=== PATIENT | male | born 1985 | race Caucasian/White ===

== ENCOUNTER 2017-01-14 02:28 | Emergency (ER) | payer SELFPAY ==
[~2017-01-14] VITALS: Ht 167.6 cm; Wt 95.2 kg
[2017-01-14 04:15] LABS: BASOPHIL % 0.6 % (0-2); PLATELET COUNT 347 x10^3mcL (130-400); RED CELL DISTRIBUTION WIDTH 13.5 % (11.5-14.5)
[2017-01-14 04:23] LABS: CALCIUM 8.5 mg/dL (8.5-10.1); CARBON DIOXIDE 22.9 mmol/L (21-32); CHLORIDE SERUM 106 mmol/L (98-107); CREATININE SERUM 0.8 mg/dL (0.7-1.3); GFR1 > 60 mL/min; GLUCOSE SERUM 95 mg/dL (74-106); POTASSIUM SERUM 3.7 mmol/L (3.5-5.1); SODIUM SERUM 141 mmol/L (136-145)
[2017-01-14 04:36] LABS: ALKALINE PHOSPHATASE 87 U/L (46-116); ALT/SGPT 29 U/L (16-63); AST/SGOT 15 U/L (15-37); BILIRUBIN TOTAL 0.33 mg/dL (0.20-1.00); FREE T4 1.07 ng/dL (0.76-1.46); TOTAL PROTEIN, SERUM 7.6 g/dL (6.4-8.2)
[2017-01-14 04:41] LABS: UA SPECIFIC GRAVITY >=1.030 (1.005-1.035); microscopic required? YES; urine erythrocyte TRACE (NEGATIVE)
[2017-01-14 05:11] LABS: AMPHETAMINE QUAL UR NONE DETECTED (NEG <=1000)
[2017-01-14 06:13] VITALS: BP 121/76
== END 2017-01-14 06:13 | disposition left against medical advice (07) ==
LOC: ED 02:28
PROVIDERS: Emergency Medicine
DX: R07.89 Other chest pain (principal)
CPT/HCPCS: 36415; 84439; 85378; Q0092

== ENCOUNTER 2017-03-23 21:38 | Emergency (ER) | payer SELFPAY ==
[~2017-03-23] VITALS: Ht 167.6 cm; Wt 87.1 kg
[2017-03-23 21:41] VITALS: BP 106/78; Ht 167.6 cm; Wt 87.1 kg
== END 2017-03-23 23:33 | disposition left against medical advice (07) ==
LOC: ED 21:38
DX: Z53.21 Procedure and treatment not carried out due to patient leaving prior to being seen by health care provider (principal)

== ENCOUNTER 2017-03-30 18:09 | Emergency (ER) | payer SELFPAY ==
[~2017-03-30] VITALS: Ht 165.1 cm; Wt 94.3 kg
[2017-03-30 18:16] VITALS: BP 156/82; Ht 165.1 cm; Wt 94.3 kg
== END 2017-03-30 19:37 | disposition left against medical advice (07) ==
LOC: ED 18:09
DX: Z53.21 Procedure and treatment not carried out due to patient leaving prior to being seen by health care provider (principal)

== ENCOUNTER 2017-04-18 09:18 | Emergency (ER) | payer MEDICAID ==
[~2017-04-18] VITALS: Ht 167.6 cm; Wt 91.6 kg
[2017-04-18 09:43] VITALS: Ht 167.6 cm; Wt 91.6 kg
[2017-04-18 11:14] LABS: BASOPHIL % 0.4 % (0-2); PLATELET COUNT 353 x10^3mcL (130-400)
[2017-04-18 11:32] LABS: CALCIUM 8.9 mg/dL (8.5-10.1); CARBON DIOXIDE 24.8 mmol/L (21-32); CHLORIDE SERUM 105 mmol/L (98-107); CREATININE SERUM 0.9 mg/dL (0.7-1.3); GFR1 > 60 mL/min; GLUCOSE SERUM 74 mg/dL (74-106); POTASSIUM SERUM 3.3 mmol/L (3.5-5.1); SODIUM SERUM 140 mmol/L (136-145)
[2017-04-18 11:35] LABS: ALKALINE PHOSPHATASE 86 U/L (46-116); ALT/SGPT 36 U/L (16-63); AMYLASE 36 U/L (25-115); AST/SGOT 16 U/L (15-37); BILIRUBIN TOTAL 0.8 mg/dL (0.20-1.00); CHOLESTEROL 153 mg/dL (<200); HDL CHOLESTEROL 36 mg/dL (40-60); LIPASE 122 IU/L (73-393); MAGNESIUM 2.1 mg/dL (1.8-2.4); TOTAL PROTEIN, SERUM 7.4 g/dL (6.4-8.2)
[2017-04-18 12:14] LABS: microscopic required? NO
[2017-04-18 12:19] LABS: UA SPECIFIC GRAVITY 1.025 (1.005-1.035); urine erythrocyte NEGATIVE (NEGATIVE)
[2017-04-18 12:34] LABS: AMPHETAMINE QUAL UR POSITIVE (NEG <=1000)
[2017-04-18 14:15] VITALS: BP 137/80
== END 2017-04-18 14:14 | disposition home or self-care (01) ==
LOC: ED 09:18
PROVIDERS: Emergency Medicine
DX: F10.20 Alcohol dependence, uncomplicated (principal); R10.9 Unspecified abdominal pain; R07.9 Chest pain, unspecified
CPT/HCPCS: 83880; 85378; 99406; G0480; J3411; J3475; J3490; J7030

== ENCOUNTER 2017-05-07 21:59 | Emergency (ER) | payer MEDICAID ==
[~2017-05-07] VITALS: Ht 167.6 cm; Wt 92.5 kg
[2017-05-07 22:03] VITALS: Ht 167.6 cm; Wt 92.5 kg
[2017-05-08 00:12] LABS: BASOPHIL % 0.1 % (0-2); PLATELET COUNT 278 x10^3mcL (130-400); RED CELL DISTRIBUTION WIDTH 13.2 % (11.5-14.5)
[2017-05-08 00:58] LABS: ALKALINE PHOSPHATASE 80 U/L (46-116); ALT/SGPT 28 U/L (16-63); AMYLASE 42 U/L (25-115); AST/SGOT 11 U/L (15-37); BILIRUBIN TOTAL 1.3 mg/dL (0.20-1.00); CALCIUM 8.7 mg/dL (8.5-10.1); CARBON DIOXIDE 27.2 mmol/L (21-32); CHLORIDE SERUM 100 mmol/L (98-107); GFR1 > 60 mL/min; GLUCOSE SERUM 106 mg/dL (74-106); LIPASE 198 IU/L (73-393); SODIUM SERUM 138 mmol/L (136-145); TOTAL PROTEIN, SERUM 7.4 g/dL (6.4-8.2)
[2017-05-08 01:22] LABS: POTASSIUM SERUM 2.9 mmol/L (3.5-5.1)
[2017-05-08 01:58] VITALS: BP 132/71
== END 2017-05-08 01:57 | disposition home or self-care (01) ==
LOC: ED 21:59
PROVIDERS: Emergency Medicine
DX: R10.13 Epigastric pain (principal); R10.12 Left upper quadrant pain; R10.32 Left lower quadrant pain; E87.6 Hypokalemia; E86.0 Dehydration; J44.9 Chronic obstructive pulmonary disease, unspecified
CPT/HCPCS: 83880; J2405; J3010; J7030

== ENCOUNTER 2017-08-19 03:34 | Emergency (ER) | payer MEDICAID ==
[~2017-08-19] VITALS: Ht 167.6 cm; Wt 85.3 kg
[2017-08-19 03:48] VITALS: Ht 167.6 cm; Wt 85.3 kg
[2017-08-19 05:02] VITALS: BP 128/86
== END 2017-08-19 05:02 | disposition home or self-care (01) ==
LOC: ED 03:34
DX: S61.412A Laceration without foreign body of left hand, initial encounter (principal); F59 Unspecified behavioral syndromes associated with physiological disturbances and physical factors; W27.8XXA Contact with other nonpowered hand tool, initial encounter; Y92.9 Unspecified place or not applicable

== ENCOUNTER 2017-10-04 07:58 | Emergency (ER) | payer MEDICAID ==
[~2017-10-04] VITALS: Ht 170.2 cm; Wt 87.5 kg
[2017-10-04 08:39] LABS: BASOPHIL % 0.9 % (0-2); PLATELET COUNT 320 x10^3mcL (130-400); RED CELL DISTRIBUTION WIDTH 12.9 % (11.5-14.5)
[2017-10-04 08:48] LABS: CALCIUM 8.9 mg/dL (8.5-10.1); CARBON DIOXIDE 23.3 mmol/L (21-32); CHLORIDE SERUM 106 mmol/L (98-107); CREATININE SERUM 1.1 mg/dL (0.7-1.3); GFR1 > 60 mL/min; GLUCOSE SERUM 108 mg/dL (74-106); POTASSIUM SERUM 3.1 mmol/L (3.5-5.1); SODIUM SERUM 138 mmol/L (136-145)
[2017-10-04 08:54] LABS: ALBUMIN 3.8 g/dL (3.4-5.0); ALKALINE PHOSPHATASE 66 U/L (46-116); ALT/SGPT 33 U/L (16-63); AST/SGOT 15 U/L (15-37); BILIRUBIN TOTAL 0.86 mg/dL (0.20-1.00); LIPASE 153 IU/L (73-393); TOTAL PROTEIN, SERUM 6.9 g/dL (6.4-8.2)
[2017-10-04 09:42] LABS: AMPHETAMINE QUAL UR POSITIVE (See below)
[2017-10-04 10:13] VITALS: BP 128/89
== END 2017-10-04 10:13 | disposition home or self-care (01) ==
LOC: ED 07:58
PROVIDERS: Emergency Medicine
DX: K52.9 Noninfective gastroenteritis and colitis, unspecified (principal); E87.6 Hypokalemia; E86.0 Dehydration; F15.10 Other stimulant abuse, uncomplicated
CPT/HCPCS: J2405; J7030

== ENCOUNTER 2017-10-19 04:42 | Emergency (ER) | payer MEDICAID ==
[~2017-10-19] VITALS: Ht 170.2 cm; Wt 87.1 kg
[2017-10-19 08:15] VITALS: BP 107/88
== END 2017-10-19 08:15 | disposition home or self-care (01) ==
LOC: ED 04:42
DX: J98.01 Acute bronchospasm (principal); J02.9 Acute pharyngitis, unspecified; F12.20 Cannabis dependence, uncomplicated; Z59.0 Homelessness

== ENCOUNTER 2020-02-08 22:30 | Emergency (ER) | payer MEDICAID ==
[~2020-02-08] VITALS: Ht 170.2 cm; Wt 73.5 kg
[2020-02-08 22:38] VITALS: Ht 170.2 cm; Wt 73.5 kg
[2020-02-09 01:19] VITALS: BP 128/67
== END 2020-02-09 01:19 | disposition home or self-care (01) ==
LOC: ED 22:30
DX: R07.89 Other chest pain (principal); R06.00 Dyspnea, unspecified; F15.10 Other stimulant abuse, uncomplicated; R00.0 Tachycardia, unspecified; F41.9 Anxiety disorder, unspecified
CPT/HCPCS: J2060

== ENCOUNTER 2020-02-10 21:31 | Emergency (ER) | payer MEDICAID ==
[~2020-02-10] VITALS: Ht 170.2 cm; Wt 74.8 kg
[2020-02-10 21:35] VITALS: BP 122/77; Ht 170.2 cm; Wt 74.8 kg
[2020-02-11 00:32] LABS: BASOPHIL % 0.7 % (0-2); PLATELET COUNT 352 x10^3mcL (130-400); RED CELL DISTRIBUTION WIDTH 13.3 % (11.5-14.5)
[2020-02-11 00:40] LABS: CALCIUM 9.6 mg/dL (8.5-10.1); CARBON DIOXIDE 27.6 mmol/L (21-32); CHLORIDE SERUM 101 mmol/L (98-107); CREATININE SERUM 1.1 mg/dL (0.7-1.3); GFR1 > 60 mL/min; GLUCOSE SERUM 86 mg/dL (74-106); POTASSIUM SERUM 3.5 mmol/L (3.5-5.1); SODIUM SERUM 138 mmol/L (136-145)
[2020-02-11 00:44] LABS: ALBUMIN 4.3 g/dL (3.4-5.0); ALKALINE PHOSPHATASE 69 U/L (46-116); ALT/SGPT 22 U/L (16-63); AST/SGOT 18 U/L (15-37); BILIRUBIN TOTAL 0.9 mg/dL (0.20-1.00); TOTAL PROTEIN, SERUM 7.8 g/dL (6.4-8.2)
== END 2020-02-11 02:16 | disposition left against medical advice (07) ==
LOC: ED 21:31
PROVIDERS: Emergency Medicine
DX: R07.89 Other chest pain (principal); Z13.9 Encounter for screening, unspecified

== ENCOUNTER 2020-02-15 15:51 | Emergency (ER) | payer MEDICAID ==
[~2020-02-15] VITALS: Ht 170.2 cm; Wt 72.6 kg
[2020-02-15 16:04] VITALS: Ht 170.2 cm; Wt 72.6 kg
[2020-02-15 17:28] LABS: microscopic required? NO
[2020-02-15 17:40] LABS: BASOPHIL % 0.5 % (0-2); PLATELET COUNT 320 x10^3mcL (130-400); RED CELL DISTRIBUTION WIDTH 13.7 % (11.5-14.5)
[2020-02-15 17:44] LABS: UA SPECIFIC GRAVITY >=1.030 (1.005-1.035); urine erythrocyte NEGATIVE (NEGATIVE)
[2020-02-15 18:04] LABS: CARBON DIOXIDE 23.9 mmol/L (21-32); CHLORIDE SERUM 105 mmol/L (98-107); CREATININE SERUM 1.1 mg/dL (0.7-1.3); GFR1 > 60 mL/min; GLUCOSE SERUM 76 mg/dL (74-106); POTASSIUM SERUM 3.5 mmol/L (3.5-5.1); SODIUM SERUM 141 mmol/L (136-145)
[2020-02-15 18:07] LABS: ALBUMIN 4.2 g/dL (3.4-5.0); ALKALINE PHOSPHATASE 68 U/L (46-116); ALT/SGPT 23 U/L (16-63); AST/SGOT 10 U/L (15-37); BILIRUBIN TOTAL 1.13 mg/dL (0.20-1.00); CHOLESTEROL 165 mg/dL (<200); HDL CHOLESTEROL 58 mg/dL (40-60); LIPASE 116 IU/L (73-393); TOTAL PROTEIN, SERUM 7.9 g/dL (6.4-8.2)
[2020-02-15 18:15] LABS: AMPHETAMINE QUAL UR POSITIVE (See below)
[2020-02-15 20:01] VITALS: BP 127/84
== END 2020-02-15 20:01 | disposition home or self-care (01) ==
LOC: ED 15:51
PROVIDERS: Emergency Medicine
DX: R07.89 Other chest pain (principal); F41.9 Anxiety disorder, unspecified; Z59.0 Homelessness; Z20.828 Contact with and (suspected) exposure to other viral communicable diseases
CPT/HCPCS: 83880

== ENCOUNTER 2020-02-29 20:04 | Emergency (ER) | payer MEDICAID ==
[~2020-02-29] VITALS: Ht 170.2 cm; Wt 71.2 kg
[2020-02-29 20:10] VITALS: Ht 170.2 cm; Wt 71.2 kg
[2020-02-29 22:01] VITALS: BP 112/82
== END 2020-02-29 22:01 | disposition home or self-care (01) ==
LOC: ED 20:04
DX: L03.113 Cellulitis of right upper limb (principal)
CPT/HCPCS: J0696